=== PATIENT | male | born 1995 | race Hispanic/Latino ===

== ENCOUNTER 2019-03-22 10:00 | Emergency (ER) | payer OTHER, SELFPAY ==
[2019-03-22 10:56] LABS: Bacteria/HPF None Seen HPF (None Seen); Bilirubin Negative (Negative); Blood, Urine Negative (Negative); Clarity Clear (Clear); Glucose, Urine (Dipstick) Greater than 1000 mg/dL (Negative); Leukocyte Negative Leu/uL (Negative); Nitrite Negative (Negative); Protein, Urine (Dipstick) 50 mg/dL (Neg-Trace); RBC/HPF 0-3 HPF (0-3); Squamous Epithelial 0-3 HPF (0-3); Urobilinogen Normal mg/dL (Less than 2); WBC/HPF 0-3 HPF (0-3)
[2019-03-22 11:27] LABS: #Basophils 0.1 thou/uL (0.0-0.2); #Eosinphils 0.1 thou/uL (0.0-0.7); #Lymphocytes 2.1 thou/uL (1.20-3.40); #Monocytes 0.4 thou/uL (0.11-0.59); %Lymphocytes 36.7 % (21.0-51.0); %Monocytes 6.2 % (0.0-10.0); %Neutrophils 54.2 % (42.0-75.0); Hemoglobin 16.6 g/dL (14.0-18.0); Mean Corpuscular HGB CONC 34.5 g/dL (32.0-36.0); Mean Corpuscular Volume 84.2 fL (78.0-98.0); Mean Platelet Volume 8.6 fL (7.4-10.4); Platelet Count 295 thou/uL (130-400); RBC Distribution Width 11.5 % (11.5-14.5); Red Blood Cell (RBC) Count 5.73 mill/uL (4.70-6.10); White Blood Cell (WBC) Count 5.6 thou/uL (4.8-10.8)
[2019-03-22 11:52] LABS: ALT (SGPT) 24 U/L (8-55); AST (SGOT) 16 U/L (5-34); Albumin 4.7 g/dL (3.5-5.0); Alkaline Phosphatase 90 U/L (40-110); Anion Gap 14 mmol/L (10-20); BUN (Urea Nitrogen) 16 mg/dL (8.9-20.6); Bilirubin, Total 0.6 mg/dL (0.2-1.2); Calc. Creatinine Clearance 0 mL/min (70-130); Calcium 9.9 mg/dL (7.8-10.44); Carbon Dioxide 30 mmol/L (22-29); Chloride 94 mmol/L (98-107); Estimated GFR-MDRD 72; Globulin 3.3 g/dL (2.4-3.5); Glucose 323 mg/dL (70-105); Potassium 3.2 mmol/L (3.5-5.1); Sodium 135 mmol/L (136-145)
[2019-03-22] MEDS ORDERED: Potassium Chloride 20 MEQ TAB ONE (12:40)
[2019-03-22 13:07] LABS: Magnesium 1.7 mg/dL (1.6-2.6)
[2019-03-22 14:09] LABS: Actual Bicarbonate (HCO3a) 24.5 mEq/L (22-28); Analyzer IN Cardio ER; Base Excess (BEa) 0.2 mEq/L (-2.0 to +3.0); CO2 Tension 38.6 mmHg (35.0-45.0); Calcium, Ionized 1.19 mmol/L (1.12-1.30); Carboxyhemoglobin (COHb) 0.5 gm% (0.0-3.0); Hemoglobin (Hb) 16.5 g/dL (14.0-18.0); O2 Tension (PaO2) 68.9 mmHg (80.0-100.0); Potassium - ABG Lab 3.37 mmol/L (3.70-5.30); Puncture Site RB; pH, Arterial 7.42 (7.35-7.45)
== END 2019-03-22 14:24 | disposition home or self-care (01) ==
LOC: ERS 10:00
DX: E11.9 Type 2 diabetes mellitus without complications (principal); J45.909 Unspecified asthma, uncomplicated; F17.200 Nicotine dependence, unspecified, uncomplicated; Z79.51 Long term (current) use of inhaled steroids
CPT/HCPCS: 36415; 80053; 81003; 81015; 82010; 82805; 83690; 83735; 84100; 85025; 96360; 96361

== ENCOUNTER 2019-10-10 09:01 | Emergency (ER) | payer BC, OTHER ==
[2019-10-12 11:43] LABS: SARS-CoV-2 MS2 Positive; SARS-CoV-2 N Gene Negative; SARS-CoV-2 S Gene Negative; SARS-CoV-2 orf1ab Negative
== END 2019-10-10 09:34 | disposition home or self-care (01) ==
LOC: ERS 09:01
DX: Z20.828 Contact with and (suspected) exposure to other viral communicable diseases (principal)
CPT/HCPCS: 87635; 99283; U0003

== ENCOUNTER 2019-11-07 13:06 | Emergency (ER) | payer BC, OTHER ==
[~2019-11-07 13:06] MED LIST: Iopamidol-370 76% 500 ML 1 ML ONE
[2019-11-07 14:02] LABS: #Lymphocytes 2.3 thou/uL (1.20-3.40); #Monocytes 0.8 thou/uL (0.11-0.59); #Neutrophils 3.8 thou/uL (1.40-6.50); %Basophils 0.7 % (0.0-1.0); %Eosinophils 0.3 % (0.0-10.0); %Lymphocytes 32.9 % (21.0-51.0); %Monocytes 11.2 % (0.0-10.0); %Neutrophils 54.9 % (42.0-75.0); Hemoglobin 16.1 g/dL (14.0-18.0); Mean Corpuscular HGB CONC 35.2 g/dL (32.0-36.0); Mean Corpuscular Hemoglobin 30.9 pg (27.0-31.0); Mean Corpuscular Volume 87.8 fL (78.0-98.0); Mean Platelet Volume 7.9 fL (7.4-10.4); Platelet Count 252 thou/uL (130-400); RBC Distribution Width 11.7 % (11.5-14.5); White Blood Cell (WBC) Count 6.9 thou/uL (4.8-10.8)
[2019-11-07 14:27] LABS: CK (CPK) 61 U/L (30-200); Lipase 47 U/L (8-78)
[2019-11-07 14:53] LABS: Bilirubin Negative (Negative); Blood, Urine Negative (Negative); Clarity Clear (Clear); Glucose, Urine (Dipstick) Greater than 1000 mg/dL (Negative); Ketone, Urine 20 mg/dL (Negative); Leukocyte 250 Leu/uL (Negative); Nitrite Negative (Negative); Protein, Urine (Dipstick) Negative (Neg-Trace); Specific Gravity, Urine 1.033 (1.002-1.036); Squamous Epithelial 0-3 HPF (0-3); Urobilinogen Normal mg/dL (Less than 2); pH, Urine 5.5 (5.0-9.0)
[2019-11-07 14:54] LABS: Bacteria/HPF 1+ HPF (None Seen)
--- NOTE | 2019-11-07 14:56 | CT ---
CT Abdomen Pelvis W Con History: Left lower quadrant abdominal pain Comparison: None. Findings: Lung bases are clear. No pericardial effusion. The liver, pancreas, spleen, adrenal glands are unremarkable. No hydronephrosis. No dilated loops of large or small bowel. The appendix is felt to be visualized and appears normal. Mildly prominent left superficial inguinal lymph node. No hydronephrosis. No abnormal renal enhancing mass. No retroperitoneal periaortic adenopathy. Bilate ral pars interarticularis defects of L5 without subluxation. Impression: 1. No acute inflammatory process in the abdomen or pelvis. 2. Mildly inflamed likely reactive left superficial inguinal lymph lymph nodes. Recommend correlation for underlying left groin/lower extremity infection.
[2019-11-07] MEDS ORDERED: Azithromycin 250 MG TAB ONE (15:44)
[2019-11-07] MEDS ORDERED: cefTRIAXone\\ROCEPHIN 1 GM VIAL ONE (15:44)
[2019-11-07] MEDS ORDERED: Lidocaine 1% (PF) 30 ML VIAL ONE (15:44)
== END 2019-11-07 16:25 | disposition home or self-care (01) ==
LOC: ERS 13:06
DX: N39.0 Urinary tract infection, site not specified (principal); R59.9 Enlarged lymph nodes, unspecified; E11.9 Type 2 diabetes mellitus without complications; Z79.4 Long term (current) use of insulin
CPT/HCPCS: 74177; 81003; 81015; 82550; 83690; 85025; 96360; 96361; 96372; J0696; J2001; Q9967